=== PATIENT | female | born 1995 | race Caucasian/White ===

== ENCOUNTER 2017-09-28 09:00 | Emergency (ER) | payer BC ==
[2017-09-28 09:40] LABS: BUN Blood Urea Nitrogen 19 mg/dL (6-20); Bicarbonate 22 mEq/L (21-31); Glucose Level 146 mg/dL (65-120); Potassium 3.2 mEq/L (3.6-5.0); Sodium Level 136 mEq/L (135-145)
[2017-09-28 09:49] LABS: Absolute Lymphocytes (CBC) 1.9 K/uL (0.7-4.9); Absolute Monocytes 0.2 K/uL (0.1-1.3); Absolute Neutrophil 4.3 K/uL (1.8-8.0); Basophils % 0.4 % (0-1.3); Eosinophils % 6.2 % (0-4.4); Hematocrit 37.9 % (36.0-45.0); Lymphocytes % 27.2 % (15.3-44.8); MCH 28.7 pg (27.0-35.0); MCV 87.1 fL (80-100); MPV 10.1 fL (7.6-11.3); Monocytes % 3.1 % (3.3-12.3); RBC Red Blood Cell Count 4.36 M/uL (3.86-4.86)
[2017-09-28] MEDS ORDERED: D50W 25 GM/50 ML SYRINGE IV ONE (10:16)
[2017-09-28] MEDS ORDERED: ONDANSETRON 4 MG/2 ML VIAL ONE (10:16)
[2017-09-28] MEDS ORDERED: POTASSIUM CL SA 10 MEQ TAB PO ONE (10:30)
[2017-09-28] MEDS ORDERED: D5 0.45 NS 1,000 ML IV ONE (11:52)
--- NOTE | 2017-09-28 15:39 | EDPHYS ---
Physician Documentation [facility] Name: oTby Little Age: 22 yrs Sex: Female : 1995 Arrival Date: 09/28/2017 Time: 09:03 Bed 7 Private MD: ED Physician Marciano Ngo Historical: - Allergies: 09/28 09:13 Tramadol HCl; sv - Home Meds: 09:13 diazepam Oral [Active]; Prazosin Oral [Active]; Soma Oral [Active]; traceba [Active]; sv Humalog Sub-Q [Active]; Belsomra oral oral [Active]; lacida [Active]; - PMHx: 09:13 Anxiety; Bipolar disorder; Depression; PTSD; sv - PSHx: 09:13 Appendectomy; multiple left leg surgeries; sv - Immunization history:: Adult Immunizations up to date. - Social history:: Smoking status: Patient/guardian denies using tobacco, Patient/guardian denies using alcohol, street drugs, IV drugs. - Ebola Screening: : No symptoms or risks identified at this time. Vital Signs: 09:13 BP 136 / 85; Pulse 96; Resp 20; Temp 98.0; Pulse Ox 98% ; Weight 72.57 kg; Height 5 ft. sv 3 in. (160.02 cm); Pain 0/10; 10:40 BP 108 / 73; Pulse 80; Resp 18; Pulse Ox 99% ; sv 12:16 BP 112 / 74; Pulse 72; Resp 16; Pulse Ox 98% on R/A; ss 09:13 Body Mass Index 28.34 (72.57 kg, 160.02 cm) sv MDM: 15:39 Patient medically screened. kdr 09/28 09:03 Order name: glucometer results - FOR PT WITH NO ID iw 09/28 09:12 Order name: CBC with Diff; Complete Time: 10:14 kdr 09/28 09:12 Order name: Chem 7; Complete Time: 10:14 kdr 09/28 10:33 Order name: Glucose, Ancillary Testing; Complete Time: 12:16 EDMS 09/28 10:47 Order name: Glucose, Ancillary Testing; Complete Time: 12:16 EDMS 09/28 09:12 Order name: Misc. Order: Monitor/record Blood glucose Q 15 minutes; Complete Time: 09:29kdr 09/28 09:30 Order name: Diet Ada 1800 Sj; Complete Time: 09:31 bd Administered Medications: 10:18 Drug: Zofran 4 mg Route: IVP; Site: right antecubital; sv 10:34 Follow up: Response: No adverse reaction; Marked relief of symptoms sv 10:20 Drug: D50W 50 ml Route: IVP; Site: right antecubital; sv 10:34 Follow up: Response: No adverse reaction; Blood sugar is elevated sv 10:34 Drug: Potassium Chloride 40 mEq Route: PO; sv 10:35 Follow up: Response: No adverse reaction sv 11:53 Drug: D5-1/2 NS 1000 ml Route: IV; Rate: 125 ml/hr; Site: right antecubital; iw 13:00 Follow up: IV Status: Order to discontinue infusion sv Point of Care Testing: Blood Glucose: 09:03 Blood Glucose: 160 mg/dL; iw 09:28 Blood Glucose: 134 mg/dL; sv 09:44 Blood Glucose: 119 mg/dL; sv 10:00 Blood Glucose: 108 mg/dL; sv 10:15 Blood Glucose: 97 mg/dL; sv 10:32 Blood Glucose: 180 mg/dL; sv 10:45 Blood Glucose: 151 mg/dL; sv 11:06 Blood Glucose: 131 mg/dL; sv 11:19 Blood Glucose: 114 mg/dL; jb1 11:39 Blood Glucose: 107 mg/dL; bd 11:58 Blood Glucose: 107 mg/dL; jb1 12:16 Blood Glucose: 107 mg/dL; ss 12:38 Blood Glucose: 106 mg/dL; ss 13:22 Blood Glucose: 127 mg/dL; jb1 14:13 Blood Glucose: 147 mg/dL; jb1 15:00 Blood Glucose: 200 mg/dL; ss 15:30 Blood Glucose: 229 mg/dL; ss 09:28 Per pt's continuous glucose monitoring system. Ok by Dr Ritter hobson use pt's own. sv 09:44 Per pt's continuous glucose monitoring system. sv 10:00 Per pt's continuous glucose monitoring system sv 10:15 Per pt's continuous glucose monitoring system sv 10:32 by our glucometer. sv 12:16 patient's continuous glucose monitor ss Ranges: Critical Glucose Levels:Adult <50 mg/dl or >400 mg/dl <40 mg/dl or >180 mg/dl Disposition: 09/28/17 15:39 Discharged to Home. Impression: Insulin overdose - accidental, hypoglycemia - resolved. - Condition is Stable. - Discharge Instructions: Hypoglycemia, [id number]. - Medication Reconciliation Form, Thank You Letter form. - Follow up: Private Physician; When: 2 - 3 days; Reason: If symptoms return, Further diagnostic work-up, Recheck today's complaints, Continuance of care, Re-evaluation by your physician. - Problem is new. - Symptoms are resolved. Addendum: 10/25/2017 09:39 Addendum: CC: Accidental insulin overdose HPI: The patient states that she accidentally k dr took the wrong insulin this morning and had noted that her BS is dropping more than normal had she take her regular insulin. She has no other focal or global ? at this time. . Addendum: ROS: Const: No fever, chills or weight loss Eyes: no visual changes or c/o, Neck: no pain or injury, CV: no CP or palpitations, Resp: no SOB, cough or congestion, Abd: no n/v/d or pain, Back: no pain or injury, : no pain or bleeding, MS/Ext: no pain, injury, swelling, tingling, Skin: no lacerations, pain, injury, skin turgor good, Neuro: CN grossly intact and no other deficits, Psych: Appropriate for age, Allergy/Immunology: no rashes or other s/s, Endo: no evidence of polyuria, polydipsia, temperature control or other s/s . Addendum: Exam: Const: WDWN WF in NAD, Head/Face: no injury, pain or deformity, Eyes: PERRLA, ENT: no pain, injury or bleeding, Neck: no pain, injury or deformity, full ROM Chest/Axilla: No pain, injury or deformity, CV: no rubs, gallops, murmurs, regular rate, Resp: CTAB, regular rate, Abd/GI: soft, NT, BS present in all quads and normal, Back: no injury or deformity, full ROM, MS/Extremity: no injury or deformity, FROM, distal pulses good and equal, Skin: no rashes, ecchymosis skin turgor good, Neuro: CN grossly intact, no other neuro deficits, Psych: appropriate for age, no SI/HI, no depression . Addendum: MDM (Discharge) All VS and nursing notes reviewed. The patient was counseled on the results and need for follow-up. The patient was discharged in stable condition. They were happy with the care they received and the plan for d/c and follow-up. . Signatures: Dispatcher [employer] Afshan Moreland RN RN sv Marciano Ngo MD MD kdr Williams, Irene, RN RN Brandi Chi RN RN ss Corrections: (The following items were deleted from the chart) 09/28 16:01 15:39 09/28/2017 15:39 Discharged to Home. Impression: Insulin overdose - accidental, ss hypoglycemia - resolved. Condition is Stable. Forms are Medication Reconciliation Form, Thank You Letter, Antibiotic Education, Prescription Opioid Use. Follow up: Private Physician; When: 2 - 3 days; Reason: If symptoms return, Further diagnostic work-up, Recheck today's complaints, Continuance of care, Re-evaluation by your physician. Problem is new. Symptoms are resolved. kdr
--- NOTE | 2017-09-28 15:39 | ER ---
Nurse's Notes [facility] Name: Toby Little Age: 22 yrs Sex: Female : 1995 Arrival Date: 09/28/2017 Time: 09:03 Bed 7 Private MD: Diagnosis: Insulin overdose - accidental, hypoglycemia - resolved Presentation: 09/28 09:01 Presenting complaint: Patient states: she accidently took about 40 units of regular sv insulin today at 0820, instead of taking her long-acting insulin. Pt stated that her BS was dropping fast. BS was 180 before coming to the ER. Transition of care: patient was not received from another setting of care. Onset of symptoms was September 28, 2017 at 08:20. 09:01 Method Of Arrival: Wheelchair 09:01 Acuity: RY 2 09:02 Risk Assessment: Do you want to hurt yourself or someone else? Patient reports no sv desire to harm self or others. Initial Sepsis Screen: Does the patient meet any 2 criteria? No. Patient's initial sepsis screen is negative. Does the patient have a suspected source of infection? No. Patient's initial sepsis screen is negative. Care prior to arrival: None. Triage Assessment: 09:01 General: Appears in no apparent distress. comfortable, slender, Behavior is calm, sv cooperative, appropriate for age. Pain: Denies pain. EENT: No signs and/or symptoms were reported regarding the EENT system. Neuro: Level of Consciousness is awake, alert, obeys commands, Oriented to person, place, time, situation, Moves all extremities. Full function Gait is steady, Speech is normal. Cardiovascular: Patient's skin is warm and dry. Respiratory: Respiratory effort is even, unlabored, Respiratory pattern is regular, symmetrical. GI: No signs and/or symptoms were reported involving the gastrointestinal system. : No signs and/or symptoms were reported regarding the genitourinary system. Derm: Skin is pink, warm \\T\\ dry. Musculoskeletal: No signs and/or symptoms reported regarding the musculoskeletal system. Historical: - Allergies: 09:13 Tramadol HCl; sv - Home Meds: 09:13 diazepam Oral [Active]; Prazosin Oral [Active]; Soma Oral [Active]; traceba [Active]; sv Humalog Sub-Q [Active]; Belsomra oral oral [Active]; lacida [Active]; - PMHx: 09:13 Anxiety; Bipolar disorder; Depression; PTSD; sv - PSHx: 09:13 Appendectomy; multiple left leg surgeries; sv - Immunization history:: Adult Immunizations up to date. - Social history:: Smoking status: Patient/guardian denies using tobacco, Patient/guardian denies using alcohol, street drugs, IV drugs. - Ebola Screening: : No symptoms or risks identified at this time. Screenin:14 Abuse screen: Denies threats or abuse. Denies injuries from another. Nutritional sv screening: No deficits noted. Tuberculosis screening: No symptoms or risk factors identified. Fall Risk None identified. Assessment: 09:05 Reassessment: See triage assessment. sv 09:25 Reassessment: Pt stated that she usually starts feeling dizzy and having blurry vision sv when it gets below 90. Pt stated that she ate a donut and drank a coke after she realized she had taken the wrong insulin. Informed Dr Ngo, food tray ordered. 09:28 Reassessment: Pt given orange juice and water. sv 10:16 Reassessment: Patient appears in no apparent distress at this time. Patient and/or sv family updated on plan of care and expected duration. Pain level reassessed. Patient is alert, oriented x 3, equal unlabored respirations, skin warm/dry/pink. GI: Reports nausea. 10:21 Reassessment: Pt given breakfast tray. sv 10:33 Reassessment: Patient appears in no apparent distress at this time. Patient and/or sv family updated on plan of care and expected duration. Pain level reassessed. Patient is alert, oriented x 3, equal unlabored respirations, skin warm/dry/pink. Pt given applejuice. 11:53 Reassessment: Patient appears in no apparent distress at this time. Patient and/or iw family updated on plan of care and expected duration. Pain level reassessed. Patient is alert, oriented x 3, equal unlabored respirations, skin warm/dry/pink. pt states she feels dizzy and very hungry bit does not want to eat or drink anything more. 12:16 Reassessment: Patient appears in no apparent distress at this time. Patient and/or ss family updated on plan of care and expected duration. Pain level reassessed. Patient is alert, oriented x 3, equal unlabored respirations, skin warm/dry/pink. patient's mother remains at bedside, call light within reach. Pt states, "I feel good." Mother is going to leave now to get patient some food. Patient denies pain at this time. 13:07 Reassessment: D5 infusion paused for 15 minutes, RX=[id number] now. iw Vital Signs: 09:13 BP 136 / 85; Pulse 96; Resp 20; Temp 98.0; Pulse Ox 98% ; Weight 72.57 kg; Height 5 ft. sv 3 in. (160.02 cm); Pain 0/10; 10:40 BP 108 / 73; Pulse 80; Resp 18; Pulse Ox 99% ; sv 12:16 BP 112 / 74; Pulse 72; Resp 16; Pulse Ox 98% on R/A; ss 09:13 Body Mass Index 28.34 (72.57 kg, 160.02 cm) sv ED Course: 09:03 Patient arrived in ED. bd 09:05 Afshan Almanzar RN is Primary Nurse. sv 09:07 Marciano Ngo MD is Attending Physician. kdr 09:11 Triage completed. sv 09:14 Arm band placed on right wrist. sv 09:14 Patient has correct armband on for positive identification. Bed in low position. Call sv light in reach. Adult w/ patient. Pulse ox on. NIBP on. Door closed. Head of bed elevated. 09:15 Initial lab(s) drawn, by me. Inserted saline lock: 20 gauge in right antecubital area, iw using aseptic technique. Blood collected. 15:59 No provider procedures requiring assistance completed. IV discontinued, intact, ss bleeding controlled, No redness/swelling at site. Pressure dressing applied. Administered Medications: 10:18 Drug: Zofran 4 mg Route: IVP; Site: right antecubital; sv 10:34 Follow up: Response: No adverse reaction; Marked relief of symptoms sv 10:20 Drug: D50W 50 ml Route: IVP; Site: right antecubital; sv 10:34 Follow up: Response: No adverse reaction; Blood sugar is elevated sv 10:34 Drug: Potassium Chloride 40 mEq Route: PO; sv 10:35 Follow up: Response: No adverse reaction sv 11:53 Drug: D5-1/2 NS 1000 ml Route: IV; Rate: 125 ml/hr; Site: right antecubital; iw 13:00 Follow up: IV Status: Order to discontinue infusion sv Point of Care Testing: Blood Glucose: 09:03 Blood Glucose: 160 mg/dL; iw 09:28 Blood Glucose: 134 mg/dL; sv 09:44 Blood Glucose: 119 mg/dL; sv 10:00 Blood Glucose: 108 mg/dL; sv 10:15 Blood Glucose: 97 mg/dL; sv 10:32 Blood Glucose: 180 mg/dL; sv 10:45 Blood Glucose: 151 mg/dL; sv 11:06 Blood Glucose: 131 mg/dL; sv 11:19 Blood Glucose: 114 mg/dL; jb1 11:39 Blood Glucose: 107 mg/dL; bd 11:58 Blood Glucose: 107 mg/dL; jb1 12:16 Blood Glucose: 107 mg/dL; ss 12:38 Blood Glucose: 106 mg/dL; ss 13:22 Blood Glucose: 127 mg/dL; jb1 14:13 Blood Glucose: 147 mg/dL; jb1 15:00 Blood Glucose: 200 mg/dL; ss 15:30 Blood Glucose: 229 mg/dL; ss 09:28 Per pt's continuous glucose monitoring system. Ok by Dr Mary go use pt's own. sv 09:44 Per pt's continuous glucose monitoring system. sv 10:00 Per pt's continuous glucose monitoring system sv 10:15 Per pt's continuous glucose monitoring system sv 10:32 by our glucometer. sv 12:16 patient's continuous glucose monitor ss Ranges: Outcome: 15:39 Discharge ordered by . kdr 15:59 Discharged to home ambulatory, with family. ss 15:59 Condition: improved 15:59 Discharge instructions given to patient, family, Instructed on discharge instructions, follow up and referral plans. medication usage, Demonstrated understanding of instructions, follow-up care. 16:01 Patient left the ED. ss Signatures: Vitaliy Philippe jb1 Yani Lee Stephanie, RN RN Marciano Ngo MD MD kdr Williams, Irene, RN RN Brandi Chi RN RN ss Corrections: (The following items were deleted from the chart) 10:20 10:00 Zofran 4 mg IVP in right antecubital sv sv 15:59 14:14 Inserted jb1 ss
[2017-09-28 16:17] VITALS: TEMP 98
[2017-09-28 16:21] VITALS: BP 112/74; O2SAT 98
== END 2017-09-28 16:01 | disposition home or self-care (01) ==
LOC: ER 09:00
DX: T38.3X1A Poisoning by insulin and oral hypoglycemic [antidiabetic] drugs, accidental (unintentional), initial encounter (principal); F31.9 Bipolar disorder, unspecified; F43.10 Post-traumatic stress disorder, unspecified; Z88.6 Allergy status to analgesic agent
CPT/HCPCS: 36415; 80048; 82962; 85025; 96361; 96374; 96375; 99284; J2405

== ENCOUNTER 2017-10-11 17:09 | Emergency (ER) | payer BC ==
[2017-10-11 17:54] LABS: Absolute Lymphocytes (CBC) 2.1 K/uL (0.7-4.9); Absolute Monocytes 0.4 K/uL (0.1-1.3); Absolute Neutrophil 4.7 K/uL (1.8-8.0); Basophils % 0.5 % (0-1.3); Hematocrit 41.8 % (36.0-45.0); Lymphocytes % 27.5 % (15.3-44.8); MCH 28.4 pg (27.0-35.0); MCV 89.4 fL (80-100); MPV 10.6 fL (7.6-11.3); Monocytes % 5.3 % (3.3-12.3); RBC Red Blood Cell Count 4.68 M/uL (3.86-4.86)
[2017-10-11] MEDS ORDERED: NA CHLORIDE 0.9% 1,000 ML ONE ×2 (17:58→18:20)
[2017-10-11 18:04] LABS: Urine Blood NEGATIVE (NEG); Urine Glucose 2+ (NEG); Urine Protein NEGATIVE (NEG); Urine pH 5.5 (5.0-7.0)
[2017-10-11 18:04] LABS: Urine Bacteria <20 /HPF (<20); Urine Culture Reflex Order NOT NEEDED; Urine RBC <5 /HPF (NONE SEEN)
--- NOTE | 2017-10-11 18:10 | RAD REPORT ---
EXAM DESCRIPTION: RAD - Chest Pa And Lat (2 Views) - 10/11/2017 5:59 pm CLINICAL HISTORY: Cough, shortness of breath COMPARISON: June 20, 2017 TECHNIQUE: PA and lateral views of the chest were obtained. FINDINGS: The lungs are clear. Heart size is normal and central vasculature is within normal limit s. No pleural effusion or pneumothorax seen. No acute bony finding noted. No aortic abnormality. IMPRESSION: No acute cardiopulmonary process. No significant change from comparison.
[2017-10-11] MEDS ORDERED: INSULIN -REGULAR HUMAN 50 UNIT/0.5 ML ML ONE (18:20)
[2017-10-11 18:31] LABS: ALT/SGPT 20 U/L (12-78); AST/SGOT 9 U/L (15-37); Albumin 3.6 g/dL (3.4-5.0); Alkaline Phosphatase 82 U/L (45-117); BUN Blood Urea Nitrogen 12 mg/dL (7-18); Bicarbonate 24 mmol/L (21-32); Bilirubin Direct < 0.1 mg/dL (0-0.2); Bilirubin Total 0.4 mg/dL (0.2-1.0); Lipase 109 U/L (73-393); Potassium 4.9 mmol/L (3.5-5.1); Protein, Total 7.4 g/dL (6.4-8.2); Sodium Level 132 mmol/L (136-145)
[2017-10-11 18:42] LABS: Glucose Level 546 mg/dL (74-106)
--- NOTE | 2017-10-11 20:03 | EDPHYS ---
Physician Documentation [facility] Name: Toby Little Age: 22 yrs Sex: Female : 1995 Arrival Date: 10/11/2017 Time: 17:14 Bed 5 Private MD: Jessica Jeff; Dr. Neal ED Physician Jacob Chicas HPI: 10/11 18:00 This 22 yrs old Female presents to ER via Ambulatory with complaints of High pm1 Blood Sugar. 18:00 The patient or guardian reports hyperglycemia. Patient with elevated blood sugar for pm1 the past week. Patient has been having blood sugar levels in the 300 range for the past week. She has been having cough and congestion for 1 week. No fevers, chest pain, or shortness of breath. No nausea, vomiting, diarrhea. Today patient with blood sugar level in the 500 range. Contacted her manufacturer agent and told to take additional insulin to address it. Blood sugars did not improve so she came to the ER. 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 - Social history:: Smoking status: Patient/guardian denies using tobacco. - Ebola Screening: : Patient negative for fever greater than or equal to 101.5 degrees Fahrenheit, and additional compatible Ebola Virus Disease symptoms Patient denies exposure to infectious person Patient denies travel to an Ebola-affected area in the 21 days before illness onset No symptoms or risks identified at this time. ROS: 18:00 Constitutional: Negative for fever, chills, and weight loss, Eyes: Negative for injury, pm1 pain, redness, and discharge, ENT: Negative for injury, pain, and discharge, Neck: Negative for injury, pain, and swelling, Cardiovascular: Negative for chest pain, palpitations, and edema, Abdomen/GI: Negative for abdominal pain, nausea, vomiting, diarrhea, and constipation, Back: Negative for injury and pain. 18:00 : Negative for injury, bleeding, discharge, and swelling, MS/Extremity: Negative for injury and deformity, Skin: Negative for injury, rash, and discoloration, Neuro: Negative for headache, weakness, numbness, tingling, and seizure. 18:00 Respiratory: Positive for cough, Negative for shortness of breath, sputum production, wheezing. Exam: 18:00 Constitutional: This is a well developed, well nourished patient who is awake, alert, pm1 and in no acute distress. Head/Face: Normocephalic, atraumatic. Eyes: Pupils equal round and reactive to light, extra-ocular motions intact. Lids and lashes normal. Conjunctiva and sclera are non-icteric and not injected. Cornea within normal limits. Periorbital areas with no swelling, redness, or edema. ENT: Nares patent. No nasal discharge, no septal abnormalities noted. Tympanic membranes are normal and external auditory canals are clear. Oropharynx with no redness, swelling, or masses, exudates, or evidence of obstruction, uvula midline. Mucous membranes moist. Neck: Trachea midline, no thyromegaly or masses palpated, and no cervical lymphadenopathy. Supple, full range of motion without nuchal rigidity, or vertebral point tenderness. No Meningismus. Chest/axilla: Normal chest wall appearance and motion. Nontender with no deformity. No lesions are appreciated. Cardiovascular: Regular rate and rhythm with a normal S1 and S2. No gallops, murmurs, or rubs. No pulse deficits. Respiratory: Lungs have equal breath sounds bilaterally, clear to auscultation and percussion. No rales, rhonchi or wheezes noted. No increased work of breathing, no retractions or nasal flaring. Abdomen/GI: Soft, non-tender, with normal bowel sounds. No distension or tympany. No guarding or rebound. No evidence of tenderness throughout. Back: No spinal tenderness. No costovertebral tenderness. Full range of motion. Skin: Warm, dry with normal turgor. Normal color with no rashes, no lesions, and no evidence of cellulitis. MS/ Extremity: Pulses equal, no cyanosis. Neurovascular intact. Full, normal range of motion. Vital Signs: 17:28 Pulse 103 MON; Resp 16; Temp 98.8; Pulse Ox 98% on R/A; Pain 10/10; sg 18:30 BP 110 / 77; Pulse 86; Resp 17; Pulse Ox 100% ; kr2 19:00 BP 124 / 86; Pulse 81; Resp 16; Pulse Ox 99% on R/A; lp1 20:00 BP 128 / 81; Pulse 71; Resp 16; Pulse Ox 100% on R/A; lp1 20:50 BP 126 / 85; Pulse 75; Resp 16; Pulse Ox 100% on R/A; lp1 MDM: 17:31 Patient medically screened. pm1 20:02 Data reviewed: vital signs. Data interpreted: Pulse oximetry: on room air is 100 %. pm1 Interpretation: normal. Counseling: I had a detailed discussion with the patient and/or guardian regarding: the historical points, exam findings, and any diagnostic results supporting the discharge/admit diagnosis, lab results, radiology results, the need for outpatient follow up, to return to the emergency department if symptoms worsen or persist or if there are any questions or concerns that arise at home. 20:55 ED course: I was pending repeat glucose level after infusion of two liters of NS prior pm1 to calling Dr. Nguyen. After patient's level repeated, told the patient we would contact her manufacturer agent. Patient said she is ready to go home and would follow up with him since her glucose level is better. Patient wants to go home and eat. 10/11 17:43 Order name: Ketone, Serum; Complete Time: 19:07 pm10/11 17:43 Order name: Basic Metabolic Panel; Complete Time: 19:07 pm10/11 17:43 Order name: CBC with Diff; Complete Time: 18:14 pm10/11 17:43 Order name: Hepatic Function; Complete Time: 19:07 pm10/11 17:43 Order name: Lipase; Complete Time: 19:07 pm10/11 17:43 Order name: Urine Microscopic Only; Complete Time: 18:14 pm10/11 17:43 Order name: Urine Culture pm1 10/11 17:43 Order name: Blood Culture Adult (2) pm1 10/11 17:43 Order name: Chest Pa And Lat (2 Views) XRAY; Complete Time: 18:14 pm1 10/11 17:48 Order name: Flu; Complete Time: 18:59 pm1 10/11 17:59 Order name: Urine Dipstick--Ancillary (enter results); Complete Time: 18:14 ag 10/11 17:59 Order name: Urine --Ancillary (enter results); Complete Time: 18:14 ag 10/11 17:43 Order name: Urine Test (obtain specimen); Complete Time: 17:53 pm1 10/11 17:43 Order name: IV Saline Lock; Complete Time: 17:53 pm1 10/11 17:43 Order name: Labs collected and sent; Complete Time: 17:53 pm1 10/11 17:43 Order name: Urine Dipstick-Ancillary (obtain specimen); Complete Time: 17:53 pm1 Administered Medications: 18:18 Drug: Insulin Regular Human 10 units {Co-Signature: ph (Taylor Dale RN).} Route: IVP; kr2 Site: right antecubital; 19:07 Follow up: Response: Blood sugar is lowered kr2 18:25 Drug: NS 0.9% 1000 ml Route: IV; Rate: 1000 ml; Site: left antecubital; kr2 19:30 Follow up: IV Status: Completed infusion; IV Intake: 1000ml lp1 19:43 Drug: NS 0.9% 1000 ml Route: IV; Rate: 1000 ml; Site: left antecubital; lp1 21:04 Follow up: IV Status: Completed infusion; IV Intake: 1000ml lp1 Point of Care Testing: Blood Glucose: 17:26 Blood Glucose: 441 mg/dL; sg 18:58 Blood Glucose: 362 mg/dL; mt 20:48 Blood Glucose: 232 mg/dL; lp1 Ranges: Critical Glucose Levels:Adult <50 mg/dl or >400 mg/dl <40 mg/dl or >180 mg/dl Disposition: 10/12 07:10 Co-signature as Attending Physician, Jacob Chicas MD. rn Disposition: 10/11/17 20:03 Discharged to Home. Impression: Hyperglycemia, unspecified, Acute upper respiratory infection, unspecified. - Condition is Stable. - Discharge Instructions: Hyperglycemia, Upper Respiratory Infection, Adult, Viral Infections, Blood Glucose Monitoring, Adult. - Medication Reconciliation Form, Thank You Letter, Antibiotic Education, Prescription Opioid Use form. - Follow up: Emergency Department; When: As needed; Reason: Worsening of condition. Follow up: Private Physician; When: 2 - 3 days; Reason: Recheck today's complaints, Continuance of care, Re-evaluation by your physician. - Problem is new. - Symptoms have improved. Signatures: Dispatcher [employer] EDMS Grupo Weaver RN RN Jacob Chicas MD MD rn Pena, Laura, RN RN lp1 Davide Brian, ACCIDENT EXAMINER ACCIDENT EXAMINER pm1 Aisha Barclay RN RN kr2 Taylor Dale RN ph Corrections: (The following items were deleted from the chart) 10/11 21:05 20:03 10/11/2017 20:03 Discharged to Home. Impression: Hyperglycemia, unspecified; lp1 Acute upper respiratory infection, unspecified. Condition is Stable. Forms are Medication Reconciliation Form, Thank You Letter, Antibiotic Education, Prescription Opioid Use. Follow up: Emergency Department; When: As needed; Reason: Worsening of condition. Follow up: Private Physician; When: 2 - 3 days; Reason: Recheck today's complaints, Continuance of care, Re-evaluation by your physician. Problem is new. Symptoms have improved. pm1
--- NOTE | 2017-10-11 20:03 | ER ---
Nurse's Notes [facility] Name: Toby Little Age: 22 yrs Sex: Female : 1995 Arrival Date: 10/11/2017 Time: 17:14 Bed 5 Private MD: Jessica Jeff; Dr. Neal Diagnosis: Hyperglycemia, unspecified;Acute upper respiratory infection, unspecified Presentation: 10/11 17:27 Presenting complaint: Patient states: I have felt sick and cold and groggy for the last sg couple weeks. Today my FS was 527 when i got here, my Dredge Pump Operator told me to take my Fast acting Insulin to see if it would come down to Normal but its not. Transition of care: patient was not received from another setting of care. Onset of symptoms was October 11, 2017. Risk Assessment: Do you want to hurt yourself or someone else? Patient reports no desire to harm self or others. Initial Sepsis Screen: Does the patient meet any 2 criteria? No. Patient's initial sepsis screen is negative. Does the patient have a suspected source of infection? No. Patient's initial sepsis screen is negative. Care prior to arrival: None. 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 - Social history:: Smoking status: Patient/guardian denies using tobacco. - Ebola Screening: : Patient negative for fever greater than or equal to 101.5 degrees Fahrenheit, and additional compatible Ebola Virus Disease symptoms Patient denies exposure to infectious person Patient denies travel to an Ebola-affected area in the 21 days before illness onset No symptoms or risks identified at this time. Screenin:07 Abuse screen: Denies threats or abuse. Denies injuries from another. Nutritional kr2 screening: No deficits noted. Tuberculosis screening: No symptoms or risk factors identified. Fall Risk None identified. Assessment: 18:05 General: Appears in no apparent distress. uncomfortable, well groomed, well developed, kr2 well nourished, Behavior is cooperative, anxious, crying. Pain: Complains of pain in Head Pain currently is 9 out of 10 on a pain scale. Quality of pain is described as aching, Is continuous, Alleviated by nothing. Neuro: Level of Consciousness is awake, alert, obeys commands, Oriented to person, place, time, situation, Appropriate for age. Neuro: Reports "Fuzzy feeling". Cardiovascular: Capillary refill < 3 seconds in bilateral fingers Patient's skin is warm and dry. Respiratory: Airway is patent Respiratory effort is even, unlabored, Respiratory pattern is regular, symmetrical. GI: Abdomen is flat, non-distended. : Denies burning with urination. EENT: Oral mucosa is moist. Derm: Skin is intact, is healthy with good turgor, Skin is pink, warm \\T\\ dry. Musculoskeletal: Circulation, motion, and sensation intact. 19:45 Reassessment: Reassessment: Patient upset, states " I haven't even seen a real doctor"; lp1 Patient agitated, "I haven't been given anything to eat and I have a headache"; Provider notified, Dr. Solis at bedside to assess patient. 20:50 Reassessment: Patient appears in no apparent distress at this time. Patient is alert, lp1 oriented x 3, equal unlabored respirations, skin warm/dry/pink. Patient states she will follow up with her own doctor after discharge Patient states feeling better. Vital Signs: 17:28 Pulse 103 MON; Resp 16; Temp 98.8; Pulse Ox 98% on R/A; Pain 10/10; sg 18:30 BP 110 / 77; Pulse 86; Resp 17; Pulse Ox 100% ; kr2 19:00 BP 124 / 86; Pulse 81; Resp 16; Pulse Ox 99% on R/A; lp1 20:00 BP 128 / 81; Pulse 71; Resp 16; Pulse Ox 100% on R/A; lp1 20:50 BP 126 / 85; Pulse 75; Resp 16; Pulse Ox 100% on R/A; lp1 ED Course: 17:14 Patient arrived in ED. as 17:28 Triage completed. sg 17:30 Davide Brian NP is PHCP. pm1 17:30 Jacob Chicas MD is Attending Physician. pm1 17:30 Dr. Neal is Private Physician. sg 17:31 Jessica Jeff is Private Physician. sg 17:35 Aisha Barclay, BRE is Primary Nurse. kr2 17:35 Inserted saline lock: 20 gauge in right antecubital area, using aseptic technique. mt Blood collected. 17:57 Patient moved to radiology via wheelchair. jr1 17:57 X-ray completed. Patient tolerated procedure well. jr1 17:57 Patient moved back from radiology. jr1 17:58 Chest Pa And Lat (2 Views) XRAY In Process Unspecified. EDMS 18:06 Flu and/or RSV swab sent to lab. dh3 18:07 Arm band placed on. kr2 18:07 Patient has correct armband on for positive identification. Bed in low position. Call kr2 light in reach. Side rails up X 1. Pulse ox on. NIBP on. Door closed. Warm blanket given. Head of bed elevated. 18:26 IV discontinued, intact, bleeding controlled, Pressure dressing applied. Inserted kr2 saline lock: 22 gauge in left antecubital area, using aseptic technique. 20:50 No provider procedures requiring assistance completed. IV discontinued, No lp1 redness/swelling at site. Pressure dressing applied. Administered Medications: 18:18 Drug: Insulin Regular Human 10 units {Co-Signature: ph (Taylor Dale RN).} Route: IVP; kr2 Site: right antecubital; 19:07 Follow up: Response: Blood sugar is lowered kr2 18:25 Drug: NS 0.9% 1000 ml Route: IV; Rate: 1000 ml; Site: left antecubital; kr2 19:30 Follow up: IV Status: Completed infusion; IV Intake: 1000ml lp1 19:43 Drug: NS 0.9% 1000 ml Route: IV; Rate: 1000 ml; Site: left antecubital; lp1 21:04 Follow up: IV Status: Completed infusion; IV Intake: 1000ml lp1 Point of Care Testing: Blood Glucose: 17:26 Blood Glucose: 441 mg/dL; sg 18:58 Blood Glucose: 362 mg/dL; mt 20:48 Blood Glucose: 232 mg/dL; lp1 Ranges: Intake: 19:30 IV: 1000ml; Total: 1000ml. lp1 21:04 IV: 1000ml; Total: 2000ml. lp1 Outcome: 20:03 Discharge ordered by . pm1 21:04 Discharged to home ambulatory, with significant other. lp1 21:04 Condition: good 21:04 Discharge instructions given to patient, Instructed on discharge instructions, follow up and referral plans. Demonstrated understanding of instructions, follow-up care. 21:05 Patient left the ED. lp1 Signatures: Dispatcher [employer] EDMS Gurpo Weaver RN RN Tami Solano jr1 Anupama Hernandez Laura, RN RN lp1 Davide Brian, RYLEY GUN STOCKER 1 Jessica Ruth mt, Deanna 3 Aisha Barclay RN RN 2 Taylor Dale RN ph Corrections: (The following items were deleted from the chart) 20:11 20:04 Reassessment: lp1 lp1
[2017-10-11 21:20] VITALS: TEMP 98.8
[2017-10-11 21:23] VITALS: O2SAT 100
[2017-10-11 21:24] VITALS: BP 126/85
== END 2017-10-11 21:05 | disposition home or self-care (01) ==
LOC: ER 17:09
DX: R73.9 Hyperglycemia, unspecified (principal); J06.9 Acute upper respiratory infection, unspecified; Z88.5 Allergy status to narcotic agent; F41.9 Anxiety disorder, unspecified; F31.9 Bipolar disorder, unspecified; F32.9 Major depressive disorder, single episode, unspecified; F43.10 Post-traumatic stress disorder, unspecified
CPT/HCPCS: 36415; 71046; 80048; 80076; 81003; 81015; 81025; 82010; 82962; 83690; 85025; 87040; 87086; 87088; 87804; 96361; 96374; 99284; J7030

== ENCOUNTER 2022-11-16 22:46 | Emergency (ER) | payer OTHER ==
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
[2022-11-17 02:06] VITALS: BP 133/93; TEMP 98.4; O2SAT 97
== END 2022-11-17 01:32 | disposition home or self-care (01) ==
LOC: ER 22:46
DX: T23.201A Burn of second degree of right hand, unspecified site, initial encounter (principal); G54.6 Phantom limb syndrome with pain; Z89.512 Acquired absence of left leg below knee; Z88.5 Allergy status to narcotic agent; Z88.7 Allergy status to serum and vaccine
CPT/HCPCS: 99281

== ENCOUNTER 2023-07-07 06:27 | Observation (INO) | payer OTHER ==
[2023-07-07 08:12] LABS: Specific Gravity > 1.030 (1.005-1.030)
[2023-07-07 08:13] LABS: Specific Gravity > 1.030 (1.005-1.030); Urine Bilirubin NEGATIVE (Negative); Urine Blood Negative (Negative); Urine Clarity Clear (Clear); Urine Color Colorless (Yellow); Urine Glucose 4+ (Over) (Negative); Urine Ketones 2+ (Negative); Urine Microscopic Reflex YN NO UMIC; Urine Nitrite NEGATIVE (Negative); Urine Protein NEGATIVE (Negative); Urine Urobilinogen Normal (Normal); Urine pH 5.5 (5.0-7.0)
[2023-07-07 08:16] LABS: Absolute Lymphocytes (CBC) 1.2 K/uL (0.7-4.9); Absolute Monocytes 0.4 K/uL (0.1-1.3); Absolute Neutrophil 6.6 K/uL (1.8-8.0); Basophils % 0.6 % (0-1.3); Eosinophils % 0.4 % (0-4.4); Hematocrit 37.3 % (36.0-45.0); Hemoglobin 12.4 g/dL (12.0-15.0); Lymphocytes % 14.9 % (15.3-44.8); MCH 28.4 pg (27.0-35.0); MCHC 33.3 g/dL (32.0-36.0); MCV 85.5 fL (80-100); MPV 9.8 fL (7.6-11.3); Monocytes % 4.2 % (3.3-12.3); Neutrophils % 79.9 % (41.7-73.7); Platelets 254 thou/uL (152-406); RBC Red Blood Cell Count 4.36 M/uL (3.86-4.86); Red Cell Distribution Width 14.1 % (12.1-15.2)
[2023-07-07] MEDS ORDERED: ONDANSETRON 4 MG/2 ML VIAL ONE (08:18)
[2023-07-07] MEDS ORDERED: PROMETHAZINE INJ 25 MG/ML AMP ONE (08:19)
[2023-07-07] MEDS ORDERED: NA CHLORIDE 0.9% 1,000 ML ONE (08:19)
[2023-07-07 08:34] LABS: Albumin 3.3 g/dL (3.4-5.0); Albumin/Globulin Ratio 0.9 (1.1-1.8); Anion Gap 13.4 mEq/L (5.0-15.0); Bilirubin Direct 0.1 mg/dL (0-0.2); Bilirubin Indirect, Calculated 0.4 mg/dL (0.2-0.8); Bilirubin Total 0.5 mg/dL (0.2-1.0); Globulin 3.8 g/dL (2.3-3.5); Magnesium 1.9 mg/dL (1.6-2.4); Phosphorus 2.8 mg/dL (2.5-4.9); Potassium 4.4 mEq/L (3.5-5.1); Protein, Total 7.1 g/dL (6.4-8.2)
[2023-07-07 08:57] LABS: Arterial Blood Carboxyhemoglob 1.3 % (0-1.5); Blood Gas THB 12.5 g/dl (12-18); Blood O2 Saturation 90.5 % (92-98.5)
[2023-07-07] MEDS ORDERED: INSULIN REGULAR (HUMAN) 100 UNIT/ML ONE (10:09)
[2023-07-07] MEDS ORDERED: LORazepam 2 MG/ML VIAL ONE (10:09)
--- NOTE | 2023-07-07 12:52 | EDPHYS ---
Physician Documentation [facility] Name: Toby Little Age: 28 yrs Sex: Female : 1995 Arrival Date: 07/07/2023 Time: 06:27 Bed 14 Private MD: ED Physician Jun Montes HPI: 07/06 12:51 This 28 yrs old Female presents to ER via EMS with complaints of Shortness Of Breath. cp3 12:51 This 28 yrs old Female presents to ER via EMS with complaints of abdominal pain. cp3 08:11 The patient is a 28-year-old female with a history of type 1 diabetes, anxiety, bipolar cp3 who presents to the ED with generalized abdominal pain and nausea vomiting that started approximately 1 week ago with worsening symptoms. Patient endorses that in addition to the vomiting she has been coughing quite a bit. Patient denies fever, chills, diarrhea. Patient endorses that her blood sugar has been elevated. Historical: - Allergies: 06:34 FLU VACCINE; rv 06:34 pneumonia vaccine; rv 06:34 tramadol; rv - PMHx: 06:34 Anxiety; Bipolar disorder; Depression; PTSD; Type 1 Diabetes Mellitus; rv - PSHx: 06:34 section; left below the knee amputee; tubal ligation; rv - Immunization history:: Adult Immunizations up to date. - Social history:: Smoking status: Patient denies any tobacco usage or history of. - Family history:: not pertinent. - Hospitalizations: : No recent hospitalization is reported. ROS: 08:11 Constitutional: Negative for fever, chills, and weight loss, Eyes: Negative for injury, cp3 pain, redness, and discharge, ENT: Negative for injury, pain, and discharge, Neck: Negative for injury, pain, and swelling, Respiratory: Negative for shortness of breath, cough, wheezing, and pleuritic chest pain, Back: Negative for injury and pain, : Negative for injury, bleeding, discharge, and swelling, MS/Extremity: Negative for injury and deformity, Skin: Negative for injury, rash, and discoloration, Neuro: Negative for headache, weakness, numbness, tingling, and seizure, 08:11 Cardiovascular: Positive for chest pain, 08:11 Abdomen/GI: Positive for abdominal pain, nausea and vomiting, Exam: 08:11 Constitutional: This is a well developed, well nourished patient who is awake, alert, cp3 and in no acute distress. Head/Face: Normocephalic, atraumatic. Eyes: Pupils equal round and reactive to light, extra-ocular motions intact. Lids and lashes normal. Conjunctiva and sclera are non-icteric and not injected. Cornea within normal limits. Periorbital areas with no swelling, redness, or edema. ENT: Nares patent. No nasal discharge, no septal abnormalities noted. Tympanic membranes are normal and external auditory canals are clear. Oropharynx with no redness, swelling, or masses, exudates, or evidence of obstruction, uvula midline. Mucous membranes moist. Neck: Trachea midline, no thyromegaly or masses palpated, and no cervical lymphadenopathy. Supple, full range of motion without nuchal rigidity, or vertebral point tenderness. No Meningismus. Chest/axilla: Normal chest wall appearance and motion. Nontender with no deformity. No lesions are appreciated. Cardiovascular: Regular rate and rhythm with a normal S1 and S2. No gallops, murmurs, or rubs. Normal PMI, no JVD. No pulse deficits. Respiratory: Lungs have equal breath sounds bilaterally, clear to auscultation and percussion. No rales, rhonchi or wheezes noted. No increased work of breathing, no retractions or nasal flaring. Abdomen/GI: Soft, non-tender, with normal bowel sounds. No distension or tympany. No guarding or rebound. No evidence of tenderness throughout. Vital Signs: 06:42 BP 114 / 71; Pulse 98; Resp 20; Temp 97.7; Pulse Ox 94% on R/A; Weight 83.91 kg; Height pf1 5 ft. 3 in. ; Pain 8/10; 07:23 BP 112 / 71; Pulse 97; Resp 16; Pulse Ox 98% ; bp 08:34 BP 114 / 64; Pulse 99; Resp 20; Pulse Ox 95% ; bp 09:44 BP 104 / 62; Pulse 94; Resp 16; Pulse Ox 95% ; bp 11:42 BP 132 / 96; Pulse 95; Resp 15; Temp 97.9; Pulse Ox 95% ; bp 12:19 BP 116 / 70; Pulse 94; Resp 16; Pulse Ox 93% on R/A; me1 06:42 Body Mass Index 32.77 (83.91 kg, 160.02 cm) pf1 06:42 Pain Scale: Adult pf1 MDM: 07:09 Patient medically screened. cp3 08:11 Differential diagnosis: gastritis, gastroesophageal reflux disease, Irritable bowel cp3 syndrome, non-specific abd pain, urinary tract infection, dka, hyperglycemia, dehydration. Data reviewed: vital signs, nurses notes, lab test result(s), EKG, radiologic studies, ekg interpreted by me- rate 99, sinus rhythm, no evidence of acute mi. Consideration of Admission/Observation Escalation of care including admission/observation considered. I considered the following discharge prescriptions or medication management in the emergency department Medications were administered in the Emergency Department. See JUN. 08:59 ED course: abg interpreted by -7.38, pCO2 38, pO2 61 point. cp3 12:51 Management of patient was discussed with the following: Hospitalist: dr rosales. cp3 Independent interpretation of the following test(s) in the Emergency Department. Historians other than the Patient: Parent: . ED course: offered patient discharge. patient declined discharge stating she is too uncomfortable. admit to hospitalist service. 13:09 Independent interpretation of the following test(s) in the Emergency Department CT cp3 Scan: My interpretation is no free air or free fluid. 03 07:51 Order name: Basic Metabolic Panel; Complete Time: 08:36 cp3 07/06 07:51 Order name: CBC with Diff; Complete Time: 08:36 cp3 07/06 07:51 Order name: Hepatic Function; Complete Time: 08:36 cp3 07/06 07:51 Order name: Lipase; Complete Time: 08:36 cp3 07/06 07:51 Order name: Magnesium; Complete Time: 08:36 cp3 07/06 07:51 Order name: Phosphorus; Complete Time: 08:36 cp3 07/06 07:51 Order name: Glucose cp3 07/06 07:51 Order name: Urinalysis w/ reflexes; Complete Time: 08:36 cp3 07/06 08:02 Order name: Arterial Blood Gas; Complete Time: 10:04 hb 07/06 08:05 Order name: Glucose, Ancillary Testing; Complete Time: 08:36 EDMS 07/06 08:10 Order name: Test, Urine; Complete Time: 08:36 EDMS 07/06 12:18 Order name: Glucose, Ancillary Testing; Complete Time: 12:44 EDMS 07/06 12:20 Order name: Glucose, Ancillary Testing EDMS 07/06 12:45 Order name: UDS; Complete Time: 14:01 cp3 07/06 13:08 Order name: CBC with Automated Diff EDMS 07/06 13:08 Order name: CBC with Automated Diff EDMS 07/06 13:08 Order name: Comprehensive Metabolic Panel EDMS 07/06 13:08 Order name: Comprehensive Metabolic Panel EDMS 07/06 13:08 Order name: Lipid Profile EDMS 07/06 13:08 Order name: Lipid Profile EDMS 07/06 13:14 Order name: Basic Metabolic Panel EDMS 07/06 13:14 Order name: Hemoglobin A1c EDMS 07/06 13:14 Order name: Thyroid Stimulating Hormone EDMS 07/06 13:14 Order name: Urinalysis w/ reflexes EDMS 07/06 13:14 Order name: Magnesium EDMS 07/06 13:14 Order name: Magnesium EDMS 07/06 13:31 Order name: Hemoglobin A1c EDMS 07/06 13:32 Order name: T4 Free EDMS 07/06 14:07 Order name: SARS-COV-2 Antigen Rapid; Complete Time: 14:28 EDMS 07/06 12:45 Order name: CT Abd/Pelvis - IV Contrast Only; Complete Time: 13:08 cp3 07/06 07:51 Order name: EKG; Complete Time: 07:52 cp3 07/06 07:51 Order name: Cardiac monitoring; Complete Time: 07:54 cp3 07/06 07:51 Order name: EKG - Nurse/Tech; Complete Time: 08:19 cp3 07/06 07:51 Order name: IV Saline Lock; Complete Time: 07:54 cp3 07/06 07:51 Order name: NPO; Complete Time: 07:54 cp3 07/06 07:51 Order name: O2 Per Protocol; Complete Time: 07:54 cp3 07/06 07:51 Order name: O2 Sat Monitoring; Complete Time: 07:54 cp3 Administered Medications: 08:33 Drug: NS 0.9% IV 1000 ml IV at 1000 ml once Route: IV; Rate: 1000 ml; Site: right hand; bp 12:19 Follow up: Response: No adverse reaction; IV Status: Completed infusion; IV Intake: me1 1000ml 08:33 Drug: Ondansetron IVP 4 mg IVP once; over 2 minutes Route: IVP; Site: right hand; bp 12:19 Follow up: Response: No adverse reaction me1 08:33 Drug: Promethazine IVP 25 mg IVP once Route: IVP; Site: right hand; bp 12:19 Follow up: Response: No adverse reaction; Nausea is decreased me1 10:22 Drug: Insulin Regular Human IVP 5 units IVP once {Co-Signature: aa5 (Lindsay Menon RN).} Route: IVP; Site: right hand; 12:19 Follow up: Response: No adverse reaction me1 10:22 Drug: Ativan IVP 1 mg IVP once Route: IVP; Site: right hand; bp 12:19 Follow up: Response: No adverse reaction; Anxiety decreased me1 Point of Care Testing: Blood Glucose: 12:07 Blood Glucose: 288 mg/dL; me1 Ranges: Critical Glucose Levels:Adult <50 mg/dl or >400 mg/dl <40 mg/dl or >180 mg/dl Disposition Summary: 07/07/23 12:51 Hospitalization Ordered Notes: Hospitalization Status: Inpatient Admission cp3 Provider: Clarissa Rosales cp3 Location: Telemetry/MedSurg (Inpatient) cp3 Condition: Stable cp3 Problem: new cp3 Symptoms: have improved cp3 Bed/Room Type: Standard 3 Room Assignment: 401(07/07/23 13:30) 5 Diagnosis - intractable nausea of vomitng cp3 - hyperglyemia cp3 - abdominal cramping cp3 - dehydration cp3 Forms: - Medication Reconciliation Form cp3 - SBAR form cp3 - Leadership Thank You Letter cp3 Signatures: Dispatcher [employer] Jun Nicole MD MD cp3 Baudilio Benavides RN RN Clovis Chavez RN RN Mary Mann PA-C PA-C sb4 Jessica Olea mc5 Rosario Alvarenga RN me1 Lindsay Menon RN aa5 Corrections: (The following items were deleted from the chart) 08:10 07:52 TEST, SERUM+SC.LAB.BRZ ordered. EDMS EDMS 12:21 10:05 GLUCOSE+C.LAB.BRZ ordered. EDMS EDMS 13:30 12:51 cp3 mc5 15:06 07:51 BETA HYDROXYBUTYRATE+C.LAB.BRZ ordered. cp3 eb
--- NOTE | 2023-07-07 12:52 | ER ---
Nurse's Notes [facility] Name: Toby Little Age: 28 yrs Sex: Female : 1995 Arrival Date: 07/07/2023 Time: 06:27 Bed 14 Private MD: Diagnosis: intractable nausea of vomitng;hyperglyemia;abdominal cramping;dehydration Presentation: 07/06 06:33 Chief complaint: EMS states: complaining of SOB, cough and congestion. BGL of 414. rv administered solu medrol 125mg IV, Zofran 4mg IV. denies fever. denies chest pain. Coronavirus screen: Client presents with at least one sign or symptom that may indicate coronavirus-19. Standard/surgical mask placed on the client. Provider contacted for isolation considerations. Ebola Screen: No symptoms or risks identified at this time. Initial Sepsis Screen: Does the patient meet any 2 criteria? No. Patient's initial sepsis screen is negative. Does the patient have a suspected source of infection? No. Patient's initial sepsis screen is negative. Risk Assessment: Do you want to hurt yourself or someone else? Patient reports no desire to harm self or others. Onset of symptoms was July 07, 2023. 06:33 Method Of Arrival: EMS: [facility] rv 06:33 Acuity: RY 3 rv Triage Assessment: 06:34 General: Appears in no apparent distress. Behavior is calm, cooperative. Pain: Denies rv pain. Neuro: Level of Consciousness is awake, alert, obeys commands, Oriented to person, place, time, situation. Cardiovascular: Capillary refill < 3 seconds Patient's skin is warm and dry. Respiratory: Reports shortness of breath at rest Airway is patent Respiratory effort is even, unlabored, Breath sounds are clear bilaterally. GI: Reports nausea. : No signs and/or symptoms were reported regarding the genitourinary system. Derm: Skin is intact. Historical: - Allergies: 06:34 FLU VACCINE; rv 06:34 pneumonia vaccine; rv 06:34 tramadol; rv - PMHx: 06:34 Anxiety; Bipolar disorder; Depression; PTSD; Type 1 Diabetes Mellitus; rv - PSHx: 06:34 section; left below the knee amputee; tubal ligation; rv - Immunization history:: Adult Immunizations up to date. - Social history:: Smoking status: Patient denies any tobacco usage or history of. - Family history:: not pertinent. - Hospitalizations: : No recent hospitalization is reported. Screenin:35 [facility] ED Fall Risk Assessment (Adult) History of falling in the last 3 months, rv including since admission No falls in past 3 months (0 pts) Score/Fall Risk Level 0 - 2 = Low Risk Oriented to surroundings, Maintained a safe environment, Educated pt \T\ family on fall prevention, incl call for assistance when getting out of bed, Assessed \T\ reinforced patient's understanding of fall precautions. Abuse screen: Denies threats or abuse. Denies injuries from another. Nutritional screening: No deficits noted. Tuberculosis screening: No symptoms or risk factors identified. Assessment: 07:00 General: Appears distressed, obese, Behavior is cooperative, appropriate for age, bp agitated, anxious. Pain: Complains of pain in GENERALIZED. 08:34 Reassessment: No changes from previously documented assessment. Patient is alert, bp oriented x 3, equal unlabored respirations, skin warm/dry/pink. 09:44 Reassessment: No changes from previously documented assessment. Patient is alert, bp oriented x 3, equal unlabored respirations, skin warm/dry/pink. General: Behavior is agitated, anxious. 12:32 General: Appears uncomfortable, obese, unkempt, Behavior is cooperative, appropriate me1 for age. Pain: Complains of pain in head Pain does not radiate. Pain currently is 2 out of 10 on a pain scale. Quality of pain is described as aching. Neuro: Level of Consciousness is awake, alert, obeys commands, Oriented to person, place, time, situation, Appropriate for age. Cardiovascular: Capillary refill < 3 seconds Patient's skin is warm and dry. Respiratory: Airway is patent Respiratory effort is even, unlabored, Respiratory pattern is regular, symmetrical. Derm: Skin is intact, is healthy with good turgor, Skin is Skin is pink, warm \T\ dry. 13:42 General: faxed report. Called [employer] branch logistics supervisor to confirm receipt of fax. . me1 14:15 General: Called BRE Echeverria to make sure she got report and she just got another admit and me1 asked for another 30 minutes before we send patient up. . Vital Signs: 06:42 BP 114 / 71; Pulse 98; Resp 20; Temp 97.7; Pulse Ox 94% on R/A; Weight 83.91 kg; Height pf1 5 ft. 3 in. ; Pain 8/10; 07:23 BP 112 / 71; Pulse 97; Resp 16; Pulse Ox 98% ; bp 08:34 BP 114 / 64; Pulse 99; Resp 20; Pulse Ox 95% ; bp 09:44 BP 104 / 62; Pulse 94; Resp 16; Pulse Ox 95% ; bp 11:42 BP 132 / 96; Pulse 95; Resp 15; Temp 97.9; Pulse Ox 95% ; bp 12:19 BP 116 / 70; Pulse 94; Resp 16; Pulse Ox 93% on R/A; me1 06:42 Body Mass Index 32.77 (83.91 kg, 160.02 cm) pf1 06:42 Pain Scale: Adult pf1 ED Course: 06:33 Patient arrived in ED. rv 06:34 Triage completed. rv 06:34 Arm band placed on right wrist. rv 06:35 Patient has correct armband on for positive identification. Client placed on continuous rv cardiac and pulse oximetry monitoring. NIBP monitoring applied. desk monitor on. 06:35 No provider procedures requiring assistance completed. Maintain EMS IV. Dressing rv intact. Good blood return noted. Site clean \T\ dry. Gauge \T\ site: g20 right wrist. 07:09 Jun Montes MD is Attending Physician. cp3 07:22 Baudilio Benavides, BRE is Primary Nurse. bp 07:54 Glucose Sent. bp 07:54 Lipase Sent. bp 07:54 Hepatic Function Sent. bp 07:54 CBC with Diff Sent. bp 07:54 Basic Metabolic Panel Sent. bp 08:01 Urinalysis w/ reflexes Sent. hb 08:19 EKG done, by ED staff, reviewed by Jun Montes MD. mc5 12:22 Rosario Alvarenga, RN is Primary Nurse. me1 12:32 Provided Education on: POC. Verbalized understanding. . me1 12:[address] Ibarra the hospitalist machine precision engraver for [facility] with Mary GASTON for eb patient transfer consultation. 12:50 Clarissa Tracy MD is Hospitalizing Provider. cp3 13:03 CT Abd/Pelvis - IV Contrast Only In Process Unspecified. EDMS 13:19 UDS Sent. me1 Administered Medications: 08:33 Drug: NS 0.9% IV 1000 ml IV at 1000 ml once Route: IV; Rate: 1000 ml; Site: right hand; bp 12:19 Follow up: Response: No adverse reaction; IV Status: Completed infusion; IV Intake: me1 1000ml 08:33 Drug: Ondansetron IVP 4 mg IVP once; over 2 minutes Route: IVP; Site: right hand; bp 12:19 Follow up: Response: No adverse reaction me1 08:33 Drug: Promethazine IVP 25 mg IVP once Route: IVP; Site: right hand; bp 12:19 Follow up: Response: No adverse reaction; Nausea is decreased me1 10:22 Drug: Insulin Regular Human IVP 5 units IVP once {Co-Signature: aa5 (Lindsay Menon bp RN).} Route: IVP; Site: right hand; 12:19 Follow up: Response: No adverse reaction me1 10:22 Drug: Ativan IVP 1 mg IVP once Route: IVP; Site: right hand; bp 12:19 Follow up: Response: No adverse reaction; Anxiety decreased me1 Medication: 06:35 VIS not applicable for this client. rv Point of Care Testing: Blood Glucose: 12:07 Blood Glucose: 288 mg/dL; me1 Ranges: Intake: 12:19 IV: 1000ml; Total: 1000ml. me1 Outcome: 12:51 Decision to Hospitalize by Provider. cp3 15:06 Patient left the ED. eb Signatures: Dispatcher [employer] EDWI Jun Montes MD MD 3 Ana Tariq RN RN Baudilio Benavides RN RN Suha Leach Clovis Dee RN RN Sujey Sosa RN RN pf1 Rosario Alvarenga RN RN me1 Jessica Olea 5 Lindsay Menon RN [email or web address] Corrections: (The following items were deleted from the chart) 06:34 06:33 Chief complaint: EMS states: complaining of SOB, cough and congestion. BGL of rv 414. administered solu medrol 125mg IV, Zofran 4mg IV. rv 08:10 08:01 TEST, SERUM+SC.LAB.BRZ drawn and sent. EDMS 15:06 08:01 BETA HYDROXYBUTYRATE+C.LAB.GUILLE drawn and sent. hb eb
[2023-07-07] MEDS ORDERED: ONDANSETRON 4 MG/2 ML VIAL IV PRN ×2 (13:04→13:07)
[2023-07-07] MEDS ORDERED: SODIUM CHLORIDE 0.9% 10ML INJ IV PRN (13:07)
--- NOTE | 2023-07-07 13:07 | RAD REPORT ---
EXAM DESCRIPTION: CTAbdomen Pelvis W Contrast - 07/07/2023 1:01 pm CLINICAL HISTORY: Abdominal pain. ABD PAIN COMPARISON: Abdomen Pelvis W Contrast dated 05/26/2021; Abdomen Pelvis W Contrast dated 04/28/2017 TECHNIQUE: Biphasic CT imaging of the abdomen and pelvis was performed with 100 ml non-ionic IV cont rast. All CT scans are performed using dose optimization technique as appropriate and may include automated exposure control or mA/KV adjustment according to patient size. FINDINGS: No lower lobe infiltrate.Small hiatal hernia. The liver, spleen, pancreas, adrenal glands and kidneys are within normal limits. Small benign cysts both kidneys. No bowel obstruction, free air, free fluid or abscess. Evidence of previous appendectomy. No eviden ce of significant lymphadenopathy. No suspicious bony findings. IMPRESSION: No acute intra-abdominal or pelvic finding.
[2023-07-07] MEDS ORDERED: LORazepam 2 MG/ML VIAL IV PRN (13:28)
[2023-07-07 13:36] LABS: Barbiturates NEGATIVE (NEGATIVE); Benzodiazepines POSITIVE (NEGATIVE); Cocaine NEGATIVE (NEGATIVE); METHAMPHETAM NEGATIVE (NEGATIVE); Methadone NEGATIVE (NEGATIVE); Opiates NEGATIVE (NEGATIVE); Phencyclidine NEGATIVE (NEGATIVE); THC Cannibis POSITIVE (NEGATIVE)
[2023-07-07] MEDS: METHYLPREDNISOLONE 40 MG INJ IV ONE (14:04)
--- NOTE | 2023-07-07 14:05 | P.HP ---
Certification for Inpatient Patient admitted to: Observation With expected LOS: <2 Midnights Patient will require the following post-hospital care: None Practitioner: I am a practitioner with admitting privileges, knowledge of patient current condition, hospital course, and medical plan of care. Services: Services provided to patient in accordance with Admission requirements found in Title 42 Section 412.3 of the Code of Federal Regulations Patient History Date of Service: 07/07/23 Reason for admission: intractable n/v, viral illness, IDDM with hyperglycemia History of Present Illness: Ms. Little is a 28-year-old type I diabetic who comes to the emergency department with a 7-day history of cough, congestion, malaise. She started having intractable nausea and vomiting 4 days ago. Of note, her son was diagnosed with COVID 1-1/2 weeks ago. It is unclear if Ms. Little was tested, but she has been taking Paxlovid as directed x 3 days. She usually wears an insulin pump and has a Dexcom meter. The Dexcom is on her left forearm however she is unable to locate her insulin pump. She states the last time she noticed it was yesterday. Allergies tramadol [From Ultram] Adverse Reaction (Intermediate, Verified 04/30/17 16:34) Itching Tramadol HCl Allergy (Uncoded 09/28/17 16:04) Unknown Home Medications: Prazosin HCl 2 mg PO DAILY 04/29/17 Insulin Detemir [Levemir*] 20 units SQ BIDWM #1 ml 05/01/17 Pantoprazole Sodium [Protonix] 40 mg PO DAILY #30 tablet. 05/01/17 ondansetron HCL [Zofran] 4 mg PO TID PRN #10 tablet 05/01/17 - Past Medical/Surgical History Has patient received pneumonia vaccine in the past: No Diabetic: Yes -: PTSD -: Bipolar -: IDDM -: appendectomy -: skin grafts -: external fixation left ankle -: 38 surgeries to left lower leg - Left BKA Psychosocial/ Personal History: Lives with her Son - Social History Smoking Status: Unknown if ever smoked Alcohol use: No CD- Drugs: Yes Caffeine use: Yes Place of Residence: Home Review of Systems 10-point ROS is otherwise unremarkable General: Fever, Weakness, Malaise, As per HPI Respiratory: Cough, Pleuritic Pain Cardiovascular: As per HPI Gastrointestinal: Nausea, Vomiting, Abdominal Pain, As per HPI Physical Examination - Physical Exam General: Alert, Oriented x3, Other (fatigued, pale) HEENT: Atraumatic, Normocephalic Neck: Supple Respiratory: Normal air movement, Expiratory wheezes Cardiovascular: Regular rate/rhythm Capillary refill: <2 Seconds Gastrointestinal: Hypoactive Musculoskeletal: Other (left BKA) Integumentary: No rashes, Other (pallor) Neurological: Normal speech Lymphatics: No axilla or inguinal lymphadenopathy External genitalia: Deferred Rectal: Deferred - Studies Laboratory Data (last 24 hrs) 07/07/23 07/07/23 07/07/23 10:05 07:58 07:58 WBC 8.30 Hgb 12.4 Hct 37.3 Plt Count 254 Sodium 133 L Potassium 4.4 BUN 14 Creatinine 0.78 Glucose Cancelled 456 H* Phosphorus 2.8 Magnesium 1.9 Total Bilirubin 0.5 AST 5 L ALT 23 Alkaline Phosphatase 86 Lipase 29 Assessment and Plan - Plan Intractable N/V: NS at 100ml/hr NPO I&O IDDM with Hyperglycemia: FSBS q6h with mild SSI Monitor, trend, and replete electrolytes PTSD/Anxiety: Continue shelter medications as per home medications Alprazolam 1mg TID sl with sip of water fluoxetine 60mg po daily ambien 10mg po q hs prazosin 2mg po q hs Viral Illness with cough: stop Paxlovid Albuterol Nebs q 6h prn wheeze Left BKA: fall precautions GI prophylaxis: Protonix DVT prophylaxis: Lovenox 40mg sc daily Discharge Plan: Home Plan to discharge in: 24 Hours - Advance Directives Does patient have a Living Will: No Does patient have a Durable POA for Healthcare: No
[2023-07-07 14:06] LABS: SARS-CoV-2 Antigen CONTROL BLUE LINE VIS/BG OK; SARS-CoV-2 Antigen Rapid Res Negative (Negative)
[2023-07-07] MEDS ORDERED: ALBUTEROL 2.5 MG/3 ML NEB SOL NEB PRN (15:02)
[2023-07-07] MEDS: MORPHINE 2 MG/ML SYR IV PRN (15:12)
[2023-07-07] MEDS: NA CHLORIDE 0.9% 1,000 ML IV SCH (15:18)
[2023-07-07 15:58] VITALS: BMI 32.8
[2023-07-07] MEDS: KETOROLAC 30 MG/ML INJ IV PRN (16:09)
[2023-07-07] MEDS: INSULIN REGULAR (HUMAN) 100 UNIT/ML SQ SCH ×2 (16:10→22:19)
[2023-07-07] MEDS: INSULIN DETEMIR SQ SCH (16:42)
[2023-07-07 17:14] LABS: Anion Gap 15.1 mEq/L (5.0-15.0); Potassium 4.1 mEq/L (3.5-5.1)
[2023-07-07] MEDS: HYDROMORPHONE HCL 0.5 MG/0.5 ML INJ IV PRN (18:20)
[2023-07-07] MEDS: PRAZOSIN HCL 1 MG CAP PO SCH (21:54)
[2023-07-07] MEDS: INSULIN GLARGINE 100 UNIT/ML SQ ONE (22:26)
[2023-07-07] MEDS: PANTOPRAZOLE 40 MG INJ IVP SCH (22:28)
[2023-07-07] MEDS: ALPRAZOLAM 1 MG TABLET ONE (23:34)
[2023-07-07] MEDS: ZOLPIDEM TARTRATE 10 MG TABLET ONE (23:34)
[2023-07-07] MEDS: ALPRAZOLAM 1 MG TABLET PO SCH (23:35)
[2023-07-07] MEDS: ZOLPIDEM TARTRATE 10 MG TABLET PO SCH (23:35)
[2023-07-08 01:58] VITALS: O2SAT 95
[2023-07-08 03:57] LABS: Absolute Lymphocytes (CBC) 0.8 K/uL (0.7-4.9); Absolute Monocytes 0.3 K/uL (0.1-1.3); Absolute Neutrophil 14.3 K/uL (1.8-8.0); Basophils % 0.3 % (0-1.3); Hematocrit 34.5 % (36.0-45.0); Hemoglobin 11.5 g/dL (12.0-15.0); Lymphocytes % 5.5 % (15.3-44.8); MCH 28.3 pg (27.0-35.0); MCHC 33.3 g/dL (32.0-36.0); MCV 84.7 fL (80-100); MPV 9.6 fL (7.6-11.3); Monocytes % 1.8 % (3.3-12.3); Neutrophils % 92.4 % (41.7-73.7); Nucleated Red Blood Cells % 0.1 % (0-0); Platelets 303 thou/uL (152-406); RBC Red Blood Cell Count 4.07 M/uL (3.86-4.86); Red Cell Distribution Width 14.1 % (12.1-15.2)
[2023-07-08 04:14] LABS: Albumin 3.1 g/dL (3.4-5.0); Albumin/Globulin Ratio 0.8 (1.1-1.8); Anion Gap 10.6 mEq/L (5.0-15.0); Bilirubin Total 0.3 mg/dL (0.2-1.0); Globulin 3.9 g/dL (2.3-3.5); Magnesium 2.3 mg/dL (1.6-2.4); Potassium 4.6 mEq/L (3.5-5.1); Thyroid Stimulating Hormone 0.104 uIU/mL (0.358-3.740)
[2023-07-08] MEDS: METOPROLOL TAR 25 MG TAB PO SCH (06:00)
[2023-07-08] MEDS ORDERED: ALPRAZOLAM 1 MG TABLET PO SCH (09:00)
[2023-07-08] MEDS: ENOXAPARIN 40 MG/0.4 ML SQ SCH (09:02)
[2023-07-08] MEDS: FLUOXETINE 20 MG CAP PO SCH (09:02)
[2023-07-08] MEDS ORDERED: D10W 250 ML BAG IV PRN (11:15)
[2023-07-08] MEDS ORDERED: GLUCAGON 1 MG/VIAL IM PRN (11:15)
[2023-07-08] MEDS: ACETAMINOPHEN 500 MG TAB PO PRN (11:53)
[2023-07-08] MEDS: INSULIN 70/30 100 UNITS/ML SQ ONE (11:53)
[2023-07-08] MEDS: ALPRAZOLAM 0.5 MG TABLET PO ONE (11:53)
--- NOTE | 2023-07-08 12:24 | RAD REPORT ---
EXAM DESCRIPTION: RAD - Knee Left 2 View - 07/08/2023 12:17 pm CLINICAL HISTORY: knee pain; h/o of fracture COMPARISON: No comparisons TECHNIQUE: Left knee, 3 views. FINDINGS: Sequelae of below-knee amputation. No fracture, dislocation, or osseous destructive change s, or periosteal reaction. Diffuse osteopenia. No joint effusion seen. No joint space narrowing. No s oft tissue abnormality. IMPRESSION: No acute or suspicious osseous abnormality. Sequelae of below-knee amputation.
[2023-07-08] MEDS: NA CHLORIDE 0.9% 1,000 ML IV ONE (12:36)
[2023-07-08 12:49] VITALS: BP 98/75; TEMP 97.9
--- NOTE | 2023-07-09 14:26 | EKG ---
Test Date: 2023-07-07 Test Time: 07:52:15 Biomedical Manager: CEE MEASUREMENT RESULTS: Intervals: Rate: 99 LA: 174 QRSD: 72 QT: 350 QTc: 449 [place]: P: 29 LA: 174 QRS: 81 T: 51 INTERPRETIVE STATEMENTS: Normal sinus rhythm Cannot rule out Anterior infarct, age undetermined Abnormal ECG Compared to ECG 05/31/2023 21:46:04 Myocardial infarct finding now present Sinus tachycardia no longer present Electronically Signed On 07-09-23 14:24:02 CDT by Robel Perez
== END 2023-07-08 14:30 | disposition left against medical advice (07) ==
LOC: ER 06:27 → 4TH 13:39
PROVIDERS: ADMIT Hospitalist; ATTEND Hospitalist
DX: B34.9 Viral infection, unspecified (principal); E11.65 Type 2 diabetes mellitus with hyperglycemia; R11.2 Nausea with vomiting, unspecified; F43.10 Post-traumatic stress disorder, unspecified; F41.9 Anxiety disorder, unspecified; E86.0 Dehydration; R05.9 Cough, unspecified; Z89.512 Acquired absence of left leg below knee; Z79.4 Long term (current) use of insulin; Z88.5 Allergy status to narcotic agent; Z88.7 Allergy status to serum and vaccine; Z11.52 Encounter for screening for COVID-19
CPT/HCPCS: 85025 ×2; 80048 ×2; 36415 ×2; 83735 ×2; 81025; 84100; 80061; 82947 ×6; 80076; 84443; 81003; 83036 ×2; 84439; 83690; 80053; 80307; 74177; 73560; 82805; 87811; 36600; Q9967; J2550; J1815 ×6; C9113 ×2; J1650; J2270; J1170 ×2; J2405; J7030 ×3; 93005; 96361; 96374; 96375; 99285; G0378; J2920